=== PATIENT | male | born 1975 | race African-American/Black ===

== ENCOUNTER 2017-05-24 19:52 | Emergency (ER) | payer OTHER ==
[2017-05-24] MEDS: ONDANSETRON (ODT) 4 MG TAB ODT (22:22)
[2017-05-24] MEDS: HYDROmorphONE 2 MG/ML SYG IM (22:23)
== END 2017-05-25 00:05 | disposition home or self-care (01) ==
LOC: E/R 05-25 00:05
DX: G44.209 Tension-type headache, unspecified, not intractable (principal); I10 Essential (primary) hypertension
CPT/HCPCS: 70450; 96372; 99285-25